=== PATIENT | male | born 1950 | race Caucasian/White ===

== ENCOUNTER 2018-11-15 10:02 | Observation (INO) ==
--- NOTE | 2018-11-08 10:51 | EKG Report ---
Test Performed on : 11/08/2018 10:40:07 AM Test Reason : PAT Blood Pressure : / mmHG Vent. Rate : 061 BPM Atrial Rate : 061 BPM P-R Int : 200 ms QRS Dur : 096 ms QT Int : 458 ms P-R-T Axes : 057 068 060 degrees QTc Int : 461 ms Normal sinus rhythm. Normal ECG No previous ECGs available Confirmed by Morgan HWANG, Ramsey Guzmán ([id number]) on 11/08/2018 7:30:00 PM
[2018-11-08 11:06] LABS: URINE SOURCE CLEAN CATCH
[2018-11-08 11:11] LABS: BILIRUBIN URINE NEGATIVE (NEGATIVE); BLOOD URINE NEGATIVE (NEGATIVE); COLOR ORANGE; GLUCOSE URINE NEGATIVE (NEGATIVE); KETONE URINE NEGATIVE (NEGATIVE); LEUKOCYTES URINE NEGATIVE (NEGATIVE); NITRITE URINE NEGATIVE (NEGATIVE); PH URINE 7.5; PROTEIN URINE NEGATIVE (NEGATIVE); SP GRAVITY URINE 1.016; TURBIDITY URINE TURBID (CLEAR); UR EPITHELIAL CELLS <10 /HPF (<10); URINE BACTERIA NEGATIVE /HPF; URINE RBC <10 /HPF (<10); URINE WBC <10 /HPF (<10); UROBILINOGEN URINE NORMAL (NORMAL)
[2018-11-08 11:12] LABS: BASO# 0.06 X1000 (0.0-0.2); EOS# 0.59 X1000 (0.0-0.7); EOS% 9.9 % (0.0-10.0); HEMATOCRIT 39.3 % (42.0-52.0); HEMOGLOBIN 12.5 g/dL (14.0-18.0); LYMPH# 1.59 X1000 (1.2-3.4); LYMPH% 26.8 % (20.5-51.1); MCHC 31.8 g/dL (33-37); MCV 97.5 FL (81-99); MONO# 0.37 X1000 (0.11-0.59); MONO% 6.2 % (1.7-9.3); NEUT# 3.32 X1000 (1.4-6.5); NEUT% 56.1 % (42.2-75.2); PLT 199 X1000 (130-400); RBC 4.03 XMIL (4.7-6.1); RDW 13.2 % (11.5-14.5); WBC 5.93 X1000 (4.8-10.8)
[2018-11-08 11:25] LABS: INR 0.91; PTT 28.9 Seconds (22.3-41.8)
[2018-11-08 11:55] LABS: AGAP 12; BUN 18 mg/dL (8-22); CALCIUM 9.6 mg/dL (8.8-10.2); CHLORIDE 103 mmol/L (98-107); COSMO 287; CREATININE 0.8 mg/dL (0.7-1.2); ESTIMATED GFR > 60; GLUCOSE 100 mg/dL (70-104); POTASSIUM 3.7 mmol/L (3.5-5.1); SODIUM 143 mmol/L (136-145); TCO2 28 mmol/L (25-35)
[~2018-11-15 10:02] MED LIST: DIPRIVAN 1% ONE
[2018-11-15] MEDS ORDERED: PEPCID ONE (10:24)
[2018-11-15] MEDS ORDERED: COLACE ONE (10:24)
[2018-11-15] MEDS ORDERED: REGLAN ONE (10:25)
[2018-11-15] MEDS ORDERED: LR 1,000 ML ONE (10:25)
[2018-11-15] MEDS ORDERED: LYRICA ONE (10:25)
[2018-11-15] MEDS ORDERED: KEFZOL 1 GM/D5W 2 GM/100 ML IVPB ONE (10:25)
[2018-11-15] MEDS ORDERED: DIPRIVAN 1% ONE (11:29)
[2018-11-15] MEDS ORDERED: FENTANYL ONE (11:30)
[2018-11-15] MEDS ORDERED: DURAMORPH ONE (11:39)
[2018-11-15] MEDS ORDERED: MARCAINE 0.25% PF/EPI 1:200,000 ONE (11:39)
[2018-11-15] MEDS ORDERED: VANCOMYCIN ONE (11:39)
[2018-11-15] MEDS ORDERED: TORADOL ONE (11:39)
[2018-11-15] MEDS ORDERED: SODIUM CHLORIDE 0.9% ONE (11:39)
[2018-11-15] MEDS ORDERED: NEOSPORIN G.U. IRRIGANT ONE (11:40)
[2018-11-15] MEDS ORDERED: EXPAREL 1.3% ONE (11:40)
[2018-11-15] MEDS: CYKLOKAPRON 1,000 MG/NS 2,000 MG/200 ML IVPB ONE ×2 (12:15→13:20)
[2018-11-15] MEDS ORDERED: OFIRMEV 1000 MG/ISOTONIC SOLN 1,000 MG/100 ML BOTTLE ONE (12:30)
[2018-11-15] MEDS ORDERED: DECADRON ONE (12:30)
[2018-11-15] MEDS ORDERED: ZOFRAN ONE (12:30)
[2018-11-15] MEDS ORDERED: NS 1,000 ML ONE (13:54)
--- NOTE | 2018-11-15 14:26 | OPERATIVE NOTE ---
PROCEDURE DATE: 11/15/2018 PREOPERATIVE DIAGNOSIS: Degenerative joint disease, left knee. POSTOPERATIVE DIAGNOSIS: Degenerative joint disease, left knee. PROCEDURE PERFORMED: Left total knee replacement. SURGEON: Fanta Krishna MD. CUSTOMS PATROL OFFICER: Nuris Treviño. MsJorge Treviño was necessary for proper retraction and manipulation during the case. ANESTHESIA: Spinal. COMPLICATION: None. PROCEDURE: A 68-year-old male presents for left knee replacement. Risks, benefits, and no guarantees were discussed, and he was willing to proceed. He was taken to the operating room and satisfactory anesthesia obtained. The left leg was prepped and draped in the usual sterile fashion. A time-out was taken to confirm operative site, procedure, and patient. The leg was wrapped with an Esmarch tourniquet inflated to 300 mmHg. A midline incision was made over the front of the knee followed by quad tendon sparing arthrotomy. The patella was everted and resurfaced with freehand technique. The patella was then subluxed laterally and the knee flexed. An intramedullary hole made in the distal femur and the distal femoral cutting block secured in 5 degrees of valgus. Distal femoral resection was then made and the femur sized to a size 8 femoral implant. The 4-in-1 block was secured and the anterior, posterior, and chamfer cuts sequentially made. Any remaining osteophytes were debrided off the femur. A PCL retractor was placed behind the tibia to protect the PCL and neurovascular bundle. The tibial cutting block was secured and the tibial resection made. Flexion and extension gaps were roughly equal with an 8 mm spacer. Tibia was sized to a size 8 tibial tray. Trial reduction was performed with an 8 tibial tray, an 8 spacer, and an 8 femoral cruciate retaining trial prosthesis with good range of motion and stability. The patella was sized to 41 medialized dome patella. Slight lateral tracking of the patella with lateral compression was noted, and a lateral release with electrocautery performed to promote enhance patellar tracking. The trial components were removed, and the bony surfaces thoroughly irrigated with pulsatile lavage. Cement with a gram of vancomycin was then utilized to cement a [employer] size 8 tibial tray, a size 8 left cruciate-retaining femoral component, and a 41 medialized dome patella. While the cement cured, the joint capsule was injected with Exparel and a Hemovac drain placed. Any excess cement was removed with a [place] elevator and osteotome as necessary. An 8 mm cruciate retaining rotating platform polyethylene bearing was inserted into the knee and the knee reduced. Final range of motion was 0 to 130 degrees with midline patellar tracking. The arthrotomy was copiously irrigated with irrigant. It was closed over the drain with #1 Vicryl in the arthrotomy, 2-0 Vicryl in the subcutaneous and skin farhat on the skin edges. Sterile dressings completed the closure and the patient was recovered from anesthesia and transferred to the recovery room in stable condition. No intraoperative complications were noted. Instrument count, sponge count was correct at the time of closure. cc: Royer Krishna MD
[2018-11-15] MEDS ORDERED: OXY IR PO PRN ×2 (15:15)
[2018-11-15] MEDS ORDERED: MORPHINE IV PRN ×3 (15:15)
[2018-11-15] MEDS ORDERED: NS 1,000 ML IV SCH (15:15)
[2018-11-15] MEDS ORDERED: ZOFRAN IV PRN (15:15)
--- NOTE | 2018-11-15 16:26 | ORTHOPAEDICS PROGRESS NOTE ---
DATE: 11/15/2018 SUBJECTIVE: Mr. Gamboa is seen status post left total knee replacement. OBJECTIVE: Vital signs: At the present time he is afebrile with stable vital signs. Extremities: His bandage is clean and dry. He is motor and sensory intact. He still has some dysesthesias from the spinal, however. There is good capillary refill. His vital signs are stable with minimal pain. PLAN: We will plan on progressing him as his spinal wears off with mobilization. We will check him again tomorrow morning for possible outpatient discharge tomorrow. cc: Royer Krishna MD
[2018-11-15] MEDS: ULTRAM PO SCH ×2 (16:27→20:33)
[2018-11-15 17:04] LABS: URINE SOURCE CATH
[2018-11-15 17:08] LABS: BILIRUBIN URINE NEGATIVE (NEGATIVE); BLOOD URINE NEGATIVE (NEGATIVE); COLOR YELLOW; GLUCOSE URINE NEGATIVE (NEGATIVE); KETONE URINE NEGATIVE (NEGATIVE); LEUKOCYTES URINE NEGATIVE (NEGATIVE); NITRITE URINE NEGATIVE (NEGATIVE); PH URINE 5.5; PROTEIN URINE NEGATIVE (NEGATIVE); SP GRAVITY URINE 1.019; TURBIDITY URINE CLEAR (CLEAR); UR EPITHELIAL CELLS <10 /HPF (<10); URINE BACTERIA NEGATIVE /HPF; URINE RBC <10 /HPF (<10); URINE WBC <10 /HPF (<10); UROBILINOGEN URINE NORMAL (NORMAL)
[2018-11-15] MEDS ORDERED: BENADRYL PO PRN (17:33)
[2018-11-15] MEDS: KEFZOL 2 GM/D5W 2 GM/50 ML IVPB IV SCH (20:33)
[2018-11-15] MEDS: COLACE PO SCH (20:35)
[2018-11-15] MEDS: PERIDEX MT SCH (20:35)
[2018-11-16] MEDS: TYLENOL PO SCH ×2 (03:58→06:26)
[2018-11-16] MEDS: ULTRAM PO SCH ×2 (03:59→12:34)
[2018-11-16] MEDS: KEFZOL 2 GM/D5W 2 GM/50 ML IVPB IV SCH (03:59)
[2018-11-16 07:28] VITALS: BP 99/69
[2018-11-16] MEDS: COLACE PO SCH (08:07)
[2018-11-16] MEDS: PERIDEX MT SCH (08:07)
[2018-11-16] MEDS: HYDROCHLOROTHIAZIDE PO SCH ×2 (08:07→08:11)
[2018-11-16] MEDS ORDERED: FISH OIL CONCENTRATE PO SCH (09:00)
[2018-11-16] MEDS ORDERED: PEPCID PO SCH (09:00)
[2018-11-16] MEDS ORDERED: PATIENT'S OWN MED PO SCH (09:00)
[2018-11-16] MEDS ORDERED: LIPITOR PO SCH ×2 (09:00)
[2018-11-16] MEDS ORDERED: MOBIC PO SCH (09:00)
[2018-11-16] MEDS ORDERED: ASPIRIN PO SCH (09:00)
[2018-11-16 09:12] LABS: HEMATOCRIT 34.4 % (42.0-52.0)
[2018-11-16 09:52] LABS: AGAP 12; BUN 18 mg/dL (8-22); CALCIUM 8.5 mg/dL (8.8-10.2); CHLORIDE 104 mmol/L (98-107); COSMO 286; CREATININE 0.7 mg/dL (0.7-1.2); ESTIMATED GFR > 60; GLUCOSE 181 mg/dL (70-104); SODIUM 140 mmol/L (136-145); TCO2 24 mmol/L (25-35)
--- NOTE | 2018-11-16 13:15 | DISCHARGE SUMMARY ---
ADMISSION DATE: 11/15/2018 DISCHARGE DATE: 11/16/2018 DISCHARGE DIAGNOSIS: Left knee degenerative joint disease, status post left total knee arthroplasty. DISCHARGE MEDICATIONS: See discharge medication list. DISPOSITION: The patient is discharged home with home health. DISCHARGE INSTRUCTIONS: Instructions for total knee arthroplasty protocol, and instructed to return to see Dr. Krishna in 10 to 14 days. HOSPITAL COURSE: On the day of admission, patient underwent a left total knee arthroplasty. Her postoperative course was unremarkable. At discharge, he is afebrile and tolerating regular diet. His left knee dressing is clean, dry, and intact. He has had 75 mL of drainage from his Hemovac drain which we have discontinued. He is discharged home after working with physical therapy in stable condition with instructions to follow up as described above. Dictated by PIPPA Joyce for Royer Krishna MD cc: PIPPA Joyce MD
== END 2018-11-16 12:44 | disposition home health service (06) ==
LOC: PAT 10:02 → 4N 10:02
PROVIDERS: ADMIT Orthopaedic Surgery Adult Reconstructive Orthopaedic Surgery; ATTEND Orthopaedic Surgery Adult Reconstructive Orthopaedic Surgery
CPT/HCPCS: 80048; 81001; 85014; 85018; 85025; 85610; 85730; 86850; 86900; 86901; 88305; 88311; 93005; 94761; 94799; 97110; 97162; 97530; A9270; C9290; J0131; J0690; J1100; J1885; J2274; J2275; J2405; J3010; J3370; J7030; J7120; Q9974; S0020

== ENCOUNTER 2018-12-31 03:26 | Inpatient (IN) ==
--- NOTE | 2018-12-31 04:27 | PROVIDER DOCUMENTATION ---
HPI-Respiratory General - General Chief Complaint: Shortness of Breath Stated Complaint: SOB Time Seen by Provider: 12/31/18 03:48 Allergies/Adverse Reactions: Patient Allergies Allergy/AdvReac Type Severity Reaction Status Date / Time Sulfa (Sulfonamide AdvReac HIVES Verified 11/08/18 08:21 Antibiotics) Home Medications: Home Medication List Medication Instructions Recorded Confirmed Last Taken Type ATORVAstatin [Lipitor] 2 mg PO DAILY 11/08/18 12/31/18 11/13/18 21:00 History Aspirin [Aspir-Low] 1 mg PO DAILY 11/08/18 12/31/18 11/08/18 History Bronson-3 Fatty Acids [Fish Oil] 2 mg PO DAILY 11/08/18 12/31/18 11/13/18 08:00 History Naproxen 500 mg PO BID 12/31/18 12/31/18 Unknown History Ramipril 10 mg PO BID 12/31/18 12/31/18 Unknown History Spironolactone 25 mg PO DIRECTED 12/31/18 12/31/18 Unknown History - History of Present Illness-Resp Nature of Presenting Problem: Presents to the EC with complaints of SOB. He states that this has been going on for the past few days and is worse when he lays flat. He states taht he can get a few minutes of good air in and then feels like he has to take a deep breath to make up for it. He states that he did have surgery 6 weeks on his knee for a total knee replacement. He denies any history of heart failure but states that his Dr tried to change his medications and place him on a diuretic which he is taking MWF per the recommendations. It is spironolactone. He denies any chest pain or palpitations. He denies having to sit up in bed to sleep. Denies a cough, fevers or chills. He states that tonight he noticed that his BP was elevated and he noticed some wheezing in his throat so he decided to come in. He states that he has a history of afib but then when he was evaluated he was not in afib. Review of Systems - Adult - REVIEW OF SYSTEMS - ADULT Constitutional: reports: no symptoms reported Eyes: reports: no symptoms reported Ears, Nose, Mouth & Throat: reports: no symptoms reported Cardiovascular: reports: see HPI. denies: chest pain Respiratory: reports: see HPI, shortness of breath Past History - Adult - PAST MEDICAL HISTORY-ADULT Review of Records: reports: Old Records Reviewed Physical Exam-General - PHYSICAL EXAM-ADULT Initial Vital Signs Reviewed: Yes - CONSTITUTIONAL General Appearance: appears well, alert, no apparent distress - EYES Eyes: PERRL/EOMI - HEAD, EARS, NOSE, MOUTH & THROAT HENMT: normocephalic/atraumatic - NECK Neck: non-tender, full range of motion, supple, normal inspection - RESPIRATORY Respiratory: chest non-tender, lungs clear, normal breath sounds, no respiratory distress, no accessory muscle use - CARDIOVASCULAR Cardiovascular: normal peripheral pulses, regular rate, rhythm, no murmur - GASTROINTESTINAL (ABDOMEN) Abdominal Exam: normal bowel sounds, non tender, soft - MUSCULOSKELETAL Back Exam: normal inspection Extremity: normal range of motion, non-tender, no pedal edema - SKIN Integumentary: normal color, warm/dry - NEUROLOGIC Neurologic: grossly normal - PSYCHIATRIC Psych/Mental Status: normal mood/affect, oriented x 3 - HEART Score HEART Score: History: Slightly Suspicious HEART Score: ECG: Normal HEART Score: Age: > or = 65 Years HEART Score: Risk Factors for Atherosclerotic Disease: 1 or 2 Risk Factors HEART Score: Troponin: < or = Normal Limit Total HEART Score:: 3 Progress - PLAN OF CARE/RESULTS Progress/Plan/Lab Results: Vital Signs - 8 hr 12/31/18 03:29 12/31/18 06:02 Temperature 97.5 F L 98.1 F Pulse Rate 69 64 Respiratory Rate 20 13 Blood Pressure 181/96 161/88 O2 Sat by Pulse Oximetry 98 98 Laboratory Results - last 24 hr 12/31/18 12/31/18 12/31/18 04:24 04:24 04:24 WBC 7.71 RBC 3.66 L Hgb 10.5 L Hct 34.1 L MCV 93.2 MCH 28.7 MCHC 30.8 L RDW Std Deviation 14.4 Plt Count 207 MPV 8.8 Immature Gran % (Auto) 0.1 Neut % (Auto) 66.5 Lymph % (Auto) 18.3 L Keith % (Auto) 6.4 Eos % (Auto) 8.2 Baso % (Auto) 0.5 Immature Gran # (Auto) 0.01 Neut # (Auto) 5.13 Lymph # (Auto) 1.41 Keith # (Auto) 0.49 Eos # (Auto) 0.63 Baso # (Auto) 0.04 PT INR D-Dimer, Quantitative Sodium 143 Potassium 3.8 Chloride 108 H Carbon Dioxide 23 L Anion Gap 11 BUN 23 H Creatinine 0.7 Estimated GFR/1.73 m2 > 60 BUN/Creatinine Ratio 33 Glucose 111 H Calculated Osmolality 289 Calcium 8.9 Total Bilirubin 0.50 AST 18 ALT 18 Alkaline Phosphatase 78 Troponin T < 0.010 Fov-O-Pabpillczna Pept Total Protein 6.4 Albumin 4.1 Globulin 2.0 Albumin/Globulin Ratio 2.0 12/31/18 12/31/18 04:24 04:24 WBC RBC Hgb Hct MCV MCH MCHC RDW Std Deviation Plt Count MPV Immature Gran % (Auto) Neut % (Auto) Lymph % (Auto) Keith % (Auto) Eos % (Auto) Baso % (Auto) Immature Gran # (Auto) Neut # (Auto) Lymph # (Auto) Keith # (Auto) Eos # (Auto) Baso # (Auto) PT 13.9 INR 1.02 D-Dimer, Quantitative 2.97 H Sodium Potassium Chloride Carbon Dioxide Anion Gap BUN Creatinine Estimated GFR/1.73 m2 BUN/Creatinine Ratio Glucose Calculated Osmolality Calcium Total Bilirubin AST ALT Alkaline Phosphatase Troponin T Qaf-C-Vuptvwxmohj Pept 1043 H Total Protein Albumin Globulin Albumin/Globulin Ratio Orders Category Date Time Status CHEST-2 VIEWS [RAD] Stat Exams 12/31/18 04:01 Taken CTA [CT ANGIOGRM PULMONARY ARTERIES] [CT] Stat Exams 12/31/18 05:05 Taken CBC WITH ELECTRONIC DIFF [HEME] Stat Lab 12/31/18 04:24 Completed COMPREHENSIVE METABOLIC PANEL [CHEM] Stat Lab 12/31/18 04:24 Completed D-DIMER [COAG] Stat Lab 12/31/18 04:24 Completed PRO B-NATRIURETIC PEPTIDE Stat Lab 12/31/18 04:24 Completed PROTIME WITH INR [COAG] Stat Lab 12/31/18 04:24 Completed TROPONIN T Stat Lab 12/31/18 04:24 Completed EKG [EKG] Stat Ther 12/31/18 04:27 Draft Result Diagrams: 12/31/18 04:24 12/31/18 04:24 - EKG 1 Time of EKG reading by physician:: 06:25 EKG Read and Signed by:: Virginia Barrios EKG Interpretation (*Must complete 3 of following elements*): Abnormal Rate: 67 Rhythm: Afib QRS: normal [place] Interval: normal ST Wave: normal - CT/MRI 1 CT Study: Thorax (Pleural effusion and bilateral septal thickening c/w fluid overload/pulm edema. Moderate mediastinal and hilar adenopathy of uncertain etiology and significane. No PE. Hiatal hernia) - CONSULTS/PCP/HOSPITALIST Notification #1 *Consult/PCP/Hospitalist*: Lyric Time Discussed: : Consult Disposition: Admit Departure - Departure Date of Disposition Decision: 12/31/18 Time of Disposition Decision: 06:29 DIAGNOSIS: Paroxysmal atrial fibrillation, Congestive heart failure Disposition: ADMITTED INPATIENT 09 Certified Medical Emergency: Emergent Condition: Stable Referrals and Follow-Ups: Alexander Gunter MD [Primary Care Provider] - - Critical Care Note This patient required my direct & personal management of CC.: No Attestation - Physician/ LORRIE Attestation Patient care was provided by Advanced Practice Provider:: No The physician spent face to face time with patient:: Yes Advanced Practice Provider documentation review:: Supervising physician onsite and consulted in the evaluation and care of this patient. The physician did have a face to face encounter with the patient.
[2018-12-31 04:52] LABS: BASO# 0.04 X1000 (0.0-0.2); BASO% 0.5 % (0.0-0.8); EOS# 0.63 X1000 (0.0-0.7); EOS% 8.2 % (0.0-10.0); HEMATOCRIT 34.1 % (42.0-52.0); HEMOGLOBIN 10.5 g/dL (14.0-18.0); IMM GRAN# 0.01 X1000 (0.0-0.04); IMM GRAN% 0.1 % (0.0-0.5); INR 1.02; LYMPH# 1.41 X1000 (1.2-3.4); LYMPH% 18.3 % (20.5-51.1); MCH 28.7 PG (27-31); MCHC 30.8 g/dL (33-37); MCV 93.2 FL (81-99); MONO# 0.49 X1000 (0.11-0.59); MONO% 6.4 % (1.7-9.3); MPV 8.8 FL (7.4-10.4); NEUT# 5.13 X1000 (1.4-6.5); NEUT% 66.5 % (42.2-75.2); PLT 207 X1000 (130-400); PROTIME 13.9 Seconds (11.0-16.0); RBC 3.66 XMIL (4.7-6.1); RDW 14.4 % (11.5-14.5); WBC 7.71 X1000 (4.8-10.8)
[2018-12-31 05:08] LABS: AGAP 11; ALBUMIN 4.1 g/dL (3.5-5.0); ALKALINE PHOSPHATASE 78 U/L (32-122); BUN 23 mg/dL (8-22); CALCIUM 8.9 mg/dL (8.8-10.2); CHLORIDE 108 mmol/L (98-107); COSMO 289; CREATININE 0.7 mg/dL (0.7-1.2); ESTIMATED GFR > 60; GLUCOSE 111 mg/dL (70-104); GOT 18 U/L (10-34); GPT 18 U/L (10-44); POTASSIUM 3.8 mmol/L (3.5-5.1); SODIUM 143 mmol/L (136-145); TCO2 23 mmol/L (25-35); TOTAL PROTEIN 6.4 g/dL (6.3-8.3)
--- NOTE | 2018-12-31 06:23 | EKG Report ---
Test Performed on : 12/31/2018 06:20:18 AM Test Reason : SOB Blood Pressure : / mmHG Vent. Rate : 067 BPM Atrial Rate : 078 BPM P-R Int : 000 ms QRS Dur : 096 ms QT Int : 438 ms P-R-T Axes : 000 082 062 degrees QTc Int : 462 ms Atrial fibrillation. Abnormal ECG When compared with ECG of 08-NOV-2018 10:40, Atrial fibrillation. has replaced Sinus rhythm. Unconfirmed Result
[2018-12-31] MEDS ORDERED: LASIX IV ONE (06:25)
--- NOTE | 2018-12-31 07:11 | Diag Imaging Result Doc PS360 ---
EXAM: CHEST-2 VIEWS 12/31/2018 HISTORY: SOB TECHNIQUE: PA and lateral chest COMMENT: There is cardiomegaly and interstitial opacities with Lawrence B lines. This was not the case on 01/20/2016. IMPRESSION: Pulmonary edema. Electronically signed by Dario Torres 12/31/2018 7:09 AM
[2018-12-31] MEDS ORDERED: NAPROSYN PO PRN (08:21)
--- NOTE | 2018-12-31 09:54 | Diag Imaging Result Doc PS360 ---
EXAM: CT ANGIOGRM PULMONARY ARTERIES 12/31/2018 HISTORY: recent surgery, SOB TECHNIQUE: This exam was performed using automated exposure control, adjustment of mA or kV according to patient size, and/or use of iterative reconstruction technique. COMMENT: 3-D MIPS were performed. There are bilateral pleural effusions. There are no filling defects in the pulmonary arteries. The aorta is not distended and there is no evidence of dissection. There are calcifications in the left coronary artery. There is a hiatal hernia. There is increased interstitial markings generally. There are a few subpleural blebs present. There is some groundglass opacity in both lung bases. There is extensive collateral flow of contrast in the subcutaneous veins and around the spine apparently due to occlusion of the left subclavian vein. The superior vena cava is patent. There is some collateral flow through the azygos vein. There is a 15 mm right paratracheal node and several prominent aorticopulmonary window nodes are present. There is no evidence of acute bony abnormality. There is some pericholecystic fluid. There are no apparent gallstones. IMPRESSION: No evidence of pulmonary emboli. Bilateral pleural effusions. Interstitial pulmonary edema. Coronary atherosclerosis. Occlusion of the left subclavian vein. Nonspecific mediastinal adenopathy. Pericholecystic fluid which may be indicative of cholecystitis. Electronically signed by Dario Torres 12/31/2018 9:52 AM
[2018-12-31] MEDS: ALTACE PO SCH ×2 (11:08→22:19)
[2018-12-31] MEDS: HYDROCHLOROTHIAZIDE PO SCH (11:08)
[2018-12-31] MEDS: ALDACTONE PO SCH (11:08)
[2018-12-31] MEDS: ASPIRIN EC PO SCH (11:08)
[2018-12-31] MEDS: FISH OIL CONCENTRATE PO SCH (11:08)
--- NOTE | 2018-12-31 13:26 | Extremity Venous Study ---
EXAM: Venous U/S Bilateral Legs 12/31/2018 HISTORY: elevated D-dimer TECHNIQUE: Compression venous ultrasound of the lower extremities with color Doppler flow COMMENT: The deep veins of both lower extremities are compressible and demonstrate color Doppler flow. There is reflux on the right in the common femoral vein. There is no evidence of superficial venous thrombosis. IMPRESSION: No evidence of deep venous thrombosis. 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 Electronically signed by Dario Torres 12/31/2018 1:23 PM
--- NOTE | 2018-12-31 15:42 | ECHO REPORT ---
ORDER DATE: 12/31/2018 INTERPRETING PHYSICIAN: Gustavo Marina MD. CLINICAL INDICATIONS: CHF, atrial fibrillation. M-MODE MEASUREMENTS: Left ventricle end diastole: 5.6 cm. Left ventricle end systole: 3.8 cm. Posterior wall: 1.2 cm. Interventricular septum: 1.2 cm. Left atrium: 5.0 cm. Aortic diameter: 3.5 cm. SUMMARY OF 2-DIMENSIONAL IMAGIN. The left ventricular chamber appears to be moderately enlarged. The left ventricular systolic function is normal, ejection fraction is estimated at 56%. There is no wall motion abnormality noted. 2. The left atrium is significantly enlarged as well as the right atrium. 3. Inferior vena cava is at the upper limits of normal. 4. The tricuspid valve shows [id number] degree of regurgitation. 5. Pulmonary pressure is estimated at 42-47 mmHg. 6. The mitral valve shows a moderate degree of regurgitation. 7. The pulse wave Doppler of mitral inflow shows a single filling wave. 8. The tissue Doppler of septal and lateral mitral annulus averages 13 cm/sec. That suggests that the diastolic function is probably normal. 9. The aortic valve opens normally. Color flow mapping shows no regurgitation. 10.Pulmonic valve shows mild degree of regurgitation. 11.There is no pericardial effusion, no mass, and no thrombus. SUMMARY: This study shows: 1. Moderately enlarged left ventricle with preserved systolic function, ejection fraction of 56%. 2. Significantly enlarged atria. 3. Moderate mitral valve regurgitation. 4. Suspect diastolic function being normal. 5. Unremarkable aortic valve. 6. [id number] tricuspid regurgitation with pulmonary pressure 42-47 mmHg. Clinical correlation is recommended. cc: MD Alexander Verduzco MD
--- NOTE | 2018-12-31 17:59 | CARDIOLOGY CONSULTATION ---
DATE: 12/31/2018 REQUESTING PHYSICIAN: Alexander Gunter MD CHIEF COMPLAINT: Shortness of breath, suspected congestive heart failure. HISTORY: Mr. Gamboa is a very pleasant, 68-year-old, male who is known to me. I saw him recently at my office on October 13 in follow-up and for preoperative cardiac evaluation. Since then, patient underwent left total knee replacement without complications on October. The orthopedic surgical procedure was performed by Dr. Meenakshi Krishna without complications. He has been doing well. Recently, he complained of some pain and swelling of the left knee, and because of that, he was prescribed an anti-inflammatory medication, which he took for a couple of days. Last night, he felt increasingly short of breath, and at about 2 o'clock in the morning, he was really very short of breath and decided to come to the emergency room for evaluation. In the ER, they did a chest x-ray that showed findings consistent with congestive heart failure. An EKG showed atrial fibrillation with no acute ischemic changes. The heart rate on the EKG was 67 beats per minute at 6 o'clock in the morning. They did a CT of the lungs this morning. That shows no evidence of pulmonary emboli with bilateral pleural effusions, interstitial pulmonary edema, coronary atherosclerosis, and occlusion of left subclavian vein. The patient at this time is feeling better. He was given Lasix, and he has urinated quite a bit. I am seeing him at about 1:30 p.m. on December 31. He basically feels back to his normal self, except that he is somewhat sleepy. He denies having any chest pain. PAST HISTORY: Positive for hypertension for a number of years. He has hyperlipidemia. The patient has been found to have coronary heart disease. We performed a CT of coronary arteries in July 2011 that showed moderate lesions in several vessels. We have just performed recently a myocardial perfusion stress test to follow up on his coronary heart disease, on 10/26/2018, and this study came back normal. There was a focal severe basal inferior wall defect is fixed. Ejection fraction was 70%. An echocardiogram that was done also at that time was 60%, normal. Ejection fraction was normal. A Holter monitor done on October 27 showed that he is in atrial fibrillation with controlled rate. The average rate was 74 beats per minute with rare PVCs and 1 pause of 2.8 seconds. We saw him as a preoperative examination before the knee surgery. The patient therefore has been just found to have atrial fibrillation. This is a recent finding. His history is also positive for lymphoma. He has received stem cell transplantation. SURGICAL HISTORY: He has had a stomach wrap surgery. He has had neck surgery, lymphadenectomy of the arm, appendectomy. He has had also some dissection of the small bowel. SOCIAL HISTORY: He is . He is disabled. He has 1 child. FAMILY HISTORY: Noncontributory. HOME MEDICATIONS: He is taking aspirin 81 daily, Lipitor 80 daily, hydrochlorothiazide 25 daily, Naprosyn as needed, omega-3 fatty acids, ramipril 10 b.i.d., and spironolactone 25 mg 3 times a week. REVIEW OF SYSTEMS: Other than the recent onset of dyspnea noncontributory. Multiple systems were checked. PHYSICAL EXAMINATION: Vital Signs: Blood pressure is 139/85, temperature 97.9 degrees, pulse 54, respirations 18. General: Patient is awake, alert, oriented, in no distress. HEENT: Unremarkable. Chest: Sounds clear to auscultation and percussion. Heart: Sounds are irregularly irregular. Abdomen: Soft, nontender. No masses. No hepatomegaly. Extremities: Show good pulses. No peripheral edema. Neurological: Nonfocal. Moves 4 extremities. DIAGNOSTIC STUDIES: ProBNP is 1043. Liver function tests are normal. BUN 23, creatinine 0.7, potassium 3.8. IMPRESSION: 1. Patient who presents with sudden onset of dyspnea with mild elevation of the proBNP level and also radiographic evidence of congestive heart failure. This is acute diastolic heart failure, probably volume overload. 1. History of coronary heart disease, seemingly stable. 2. Relatively new onset of atrial fibrillation in the recent past. 3. The patient with a remote history of lymphoma. 4. History of hypertension. 5. History of hyperlipidemia. 6. Osteoarthritis with a recent left total knee replacement. RECOMMENDATION: At this time, I agree with IV Lasix. I will probably give him an additional low dose later, and I believe that from the Cardiology viewpoint, he needs to be started on Eliquis 5 mg twice a day for prevention of a stroke. We will arrange with us for a follow-up to decide as to when to perform a cardioversion since he has developed atrial fibrillation relatively recently. We might want to pursue conservative management, just rate control. The other issue is the possibility that he may have underlying sick sinus syndrome, and bradycardia might be playing a role in his symptoms. We will see how he does. We will probably ask him to do a 30-day loop recorder monitor down the road. If he is stable, he could probably go home tomorrow. cc: MD Alexander Verduzco MD MTDD
[2018-12-31] MEDS ORDERED: LIPITOR PO SCH (21:00)
[2018-12-31] MEDS: ELIQUIS PO SCH (22:19)
[2019-01-01 08:49] VITALS: BP 128/73
[2019-01-01] MEDS: HYDROCHLOROTHIAZIDE PO SCH (09:17)
[2019-01-01] MEDS: ASPIRIN EC PO SCH (09:17)
[2019-01-01] MEDS: FISH OIL CONCENTRATE PO SCH (09:17)
[2019-01-01] MEDS: ALDACTONE PO SCH (09:17)
[2019-01-01] MEDS: ALTACE PO SCH (09:17)
[2019-01-01] MEDS: ELIQUIS PO SCH (09:17)
--- NOTE | 2019-02-04 11:24 | HISTORY AND PHYSICAL ---
HISTORY OF PRESENT ILLNESS: The patient presented to the emergency room complaining of shortness of breath. He has a background history of dyslipidemia, hypertension, and mantle cell lymphoma that is in remission. He has an allergy to sulfa. He said that recently he has been complaining of some shortness of breath for the past few days and is worse when he lies flat. He states he can get a good minutes of good air in, feels like he has to take a deep breath to make up for it. He states he did have a total knee replacement 6 weeks prior. He denies any history of CHF but states that his doctor has tried to change his medicine to place him on a diuretic which he is taking Wednesday, Wednesday and Wednesday per recommendation of spironolactone. He denies chest pain or palpitations. He denies having to sit up at night for PND. Denies cough, fever or chills. He said that the night of presentation, his blood pressure had been elevated, and he had noticed some wheezing in his throat and decided to come in. He states that he has a past history of atrial fibrillation, but when he was evaluated, he did not have atrial fibrillation at that particular time associated with his breathing issue. MEDICATIONS: Lipitor 20 p.o. daily, aspirin 1 daily, Naprosyn 500 b.i.d., ramipril 10 b.i.d., spironolactone 25 every other day. REVIEW OF SYSTEMS: Constitutional: He denies any fever, chills, significant weight gain or weight loss. Eyes: No change in visual acuity, irritation. Ears, nose and throat: No pharyngitis, otitis or sinusitis. Cardiovascular: He denies any significant chest pain or CPI. Respiratory: He has some shortness of breath associated with activity. It seems like he is more dyspneic but knows he has orthopnea. GI: No nausea, vomiting, diarrhea, constipation or bloody stools, black stools or tarry stools. : No dysuria, hematuria, polyuria or pyuria. Neurologic: Intact. Skin: Clear. PHYSICAL EXAMINATION: VITAL SIGNS: On admission, he was afebrile. Pulse was 69, respiratory rate 20, blood pressure 181/96, O2 saturation was 98%. He had a HEART score of 3. DIAGNOSTIC DATA: His CBC on admission showed white count was 7700, with a relatively normal differential. Hematocrit was 34, platelet count was 207. Sodium was 143, potassium 3.8, chloride 108, CO2 was 23, anion gap 11, BUN was 23, creatinine 0.7, GFR greater than 60. BUN and creatinine ratio of 33. Glucose 111. Calcium 8.9. Total bilirubin 0.5. AST was 18, ALT was 18, alkaline phosphatase 78. Troponin less than 0.01. Total protein was 6.4, albumin 4.1, globulin 2. D-dimer is 2.97. PT was 13.9. INR was 1.02. ProBNP was 1043. EKG showed atrial fibrillation, heart rate of 67, normal ST segment changes. CT study of his chest/thorax showed pleural effusion with bilateral septal thickening compatible with fluid overload, pulmonary edema, moderate mediastinal hilar lymphadenopathy of uncertain etiology and significance. ASSESSMENT AND PLAN: He was admitted with paroxysmal atrial fibrillation with congestive heart failure, background history of hypertension, dyslipidemia, and mantle cell lymphoma. He was admitted for treatment of heart failure. cc: Alexander Gunter MD
--- NOTE | 2019-02-04 11:30 | DISCHARGE SUMMARY ---
ADMISSION DATE: 12/31/2018 DISCHARGE DATE: 01/01/2019 HOSPITAL COURSE: This is a 68-year-old male who presented to the hospital complaining of shortness of breath, background history of hypertension, dyslipidemia, mantle cell lymphoma and a history of atrial fibrillation. He had apparent congestive heart failure on x-ray. During the hospital stay, he had a chest x-ray which showed cardiomegaly, interstitial opacities with curly B lines, compatible with pulmonary edema. He had a CT angiogram of pulmonary arteries with no evidence of pulmonary emboli, bilateral pleural effusions, interstitial pulmonary edema, coronary atherosclerosis, occlusion of the left subclavian vein, nonspecific mediastinal adenopathy, pericholecystic fluid which may be indicative of cholecystitis. His venous studies of his legs were negative for clot. Echocardiogram showed left ventricular systolic function was normal. Ejection fraction was 56%. There was no wall motion abnormality. Summary of the test showed moderately enlarged left ventricle with preserved systolic function of approximately 56%, significantly enlarged atrium, moderate mitral valve regurgitation, suspicion of diastolic function being normal, unremarkable aortic valve. He was seen by Cardiology who felt the patient presented with sudden onset of dyspnea with mild elevation of ProBNP levels, radiographic evidence of congestive heart failure. This is acute diastolic failure, probably volume overload. History of coronary heart disease, relatively new onset of atrial fibrillation in the recent past, remote history of mantle cell lymphoma, hypertension, dyslipidemia, osteoarthritis, with a recent knee replacement. They felt fluid treatment with IV Lasix was the way to go. They recommended starting him on Eliquis 5 b.i.d. for stroke prevention. They were going to arrange a followup in order to perform a cardioversion since he has developed atrial fibrillation relatively recently, and they may consider controlling only his rate as the main therapeutic objective. The other issue is the possibility that he may have an underlying sick sinus syndrome. Bradycardia might be playing a role in his symptoms. He did well after getting the Lasix. Cardiology was going to do a 30-day loop recorder and see what is going on. His laboratory data was normal. D-dimer was 2.97. BNP was 1043. CBC showed hematocrit was 34, all which may be in part contributing to his dyspnea. He was admitted on 12/31/2018 and discharged 01/01/2019 after brisk diuresis. We will see him in the office. DIAGNOSES: 1. Congestive heart failure. 2. Relatively new onset atrial fibrillation. 3. Hypertension. 4. Dyslipidemia. 5. Mantle cell lymphoma in the past. 6. Recent knee replacement. cc: Alexander Gunter MD
== END 2019-01-01 12:55 | disposition home or self-care (01) | DRG 291 ==
LOC: P.ED 03:26 → P.MEDSURG 07:48
PROVIDERS: ADMIT Internal Medicine; ATTEND Internal Medicine